=== PATIENT | female | born 1995 | race African-American/Black ===

== ENCOUNTER 2021-03-04 18:57 | Emergency (ER) | payer MEDICAID ==
[~2021-03-04] VITALS: Ht 167.6 cm; Wt 91.0 kg
[2021-03-04] MEDS ORDERED: IBUPROFEN 800MG TABLET PO ONE (22:00)
[2021-03-04 22:04] VITALS: BP 120/70
[2021-03-04] MEDS ORDERED: MUPIROCIN 2% OINT 22GM TOP STA (23:07)
[2021-03-04] MEDS ORDERED: BACITRACIN ZINC OINT UDPKT TOP ONE (23:15)
== END 2021-03-04 23:55 | disposition home or self-care (01) ==
LOC: ER 18:57
DX: S93.492A Sprain of other ligament of left ankle, initial encounter (principal); I10 Essential (primary) hypertension; V49.49XA Driver injured in collision with other motor vehicles in traffic accident, initial encounter; Y93.89 Activity, other specified; Y92.89 Other specified places as the place of occurrence of the external cause; Y99.8 Other external cause status; Z88.5 Allergy status to narcotic agent
CPT/HCPCS: 71045; 73600; 81025; 99284